=== PATIENT | male | born 1970 | race Hispanic/Latino ===

== ENCOUNTER 2024-01-03 16:55 | Emergency (ER) | payer BC ==
[~2024-01-03] VITALS: Ht 165.1 cm; Wt 77.1 kg
[2024-01-03 18:05] VITALS: TEMP 98.8
[2024-01-03 18:44] LABS: CLARITY,URINE SL CLOUDY (CLEAR); COLOR,URINE STRAW (YELLOW); PH,URINE 6.5 (5 - 7)
[2024-01-03 18:45] LABS: BILIRUBIN,URINE NEGATIVE (NEGATIVE); GLUCOSE, URINE NEGATIVE (NEGATIVE); KETONES,URINE NEGATIVE (NEGATIVE); LEUKOCYTE ESTERASE ,URINE MODERATE (NEGATIVE); NITRITE,URINE NEGATIVE (NEGATIVE); PROTEIN,URINE DIPSTICK TRACE (NEGATIVE); URINE UROBILINOGEN 0.2 mg/dL (0.2 - 1)
[2024-01-03 18:55] LABS: BACTERIA,URINE FEW /HPF; RBC,URINE 21-50 /HPF (0-5)
[2024-01-03] MEDS: LIDOCAINE JELLY 2% 10ML URO-JET TOP ONE (19:10)
[2024-01-03 19:12] VITALS: PULSE 89; RESP 15
[2024-01-03 19:45] VITALS: BP 157/97; PULSE 87; RESP 16; TEMP 98.5; O2SAT 96
== END 2024-01-03 19:40 | disposition home or self-care (01) ==
LOC: ER 18:05
DX: R33.9 Retention of urine, unspecified (principal); R10.30 Lower abdominal pain, unspecified; I10 Essential (primary) hypertension
CPT/HCPCS: 51700; 81001; 87086; 99283

== ENCOUNTER 2024-02-16 07:17 | Inpatient (IN) | payer BC ==
[2024-02-15 12:20] LABS: BASOPHILS % 0.6 % (0.0-1.0); EOSINOPHILS # (AUTO) 0.1 (0.0-0.4); EOSINOPHILS % 1.6 % (0.0-6.0); HEMATOCRIT 46.2 % (38.2-49.6); HEMOGLOBIN 15.7 g/dL (14.0-18.0); LYMPHOCYTES # (AUTO) 1.5 (1.0-3.2); LYMPHOCYTES % 22.2 % (18.0-39.1); MEAN CORPUSCULAR HEMOGLOBIN 31.9 pg (28-32); MEAN CORPUSCULAR VOLUME 93.9 fL (81-99); MONOCYTES # (AUTO) 0.7 (0.2-0.8); NEUTROPHILS # (AUTO) 4.4 (2.1-6.9); NEUTROPHILS % 65.2 % (38.7-80.0); PLATELET COUNT 223 x10e3/uL (140-360); RED BLOOD COUNT 4.92 x10e6/uL (4.3-5.7); RED CELL DISTRIBUTION WIDTH 12.3 % (11.7-14.4)
[2024-02-15 13:03] LABS: CREATININE, SERUM 0.79 mg/dL (0.72-1.25)
[2024-02-15 13:04] LABS: CALCIUM 9.9 mg/dL (8.4-10.2)
[~2024-02-16] VITALS: Ht 165.1 cm; Wt 75.3 kg
[~2024-02-16 07:17] MED LIST: FINASTERIDE5 MG PO; FLOMAX0.4 MG PO; LOSARTAN-HCTZ1 EAC1 PO
[2024-02-16] MEDS: GENTAMICIN 80MG/NS 100 ML 200 ML IV ONE (08:08)
[2024-02-16] MEDS: LEVOFLOXACIN 500MG/D5W 100ML 100 ML IV ONE (08:08)
[2024-02-16] MEDS: SODIUM CHLORIDE 0.9% 1000ML 1,000 ML ONE (08:09)
[2024-02-16] MEDS ORDERED: IOPAMIDOL 610MG/1ML 300 MG/ML VIAL IV ONE (10:35)
[2024-02-16] MEDS ORDERED: DEXAMETHASONE SOD PHOS INJ 4 MG/ML SDV ONE (12:23)
[2024-02-16] MEDS ORDERED: ONDANSETRON HCL INJ 2MG/ML 2ML 2 MG/ML VIAL ONE (12:23)
[2024-02-16] MEDS ORDERED: SEVOFLURANE INHAL SOLN 250 ML PEN BTL ONE (12:23)
[2024-02-16] MEDS ORDERED: PHENYLEPHRINE HCL 1% 10 MG/ML VIAL ONE (12:23)
[2024-02-16] MEDS ORDERED: LIDOCAINE HCL 2% LOCAL INJ 5 ML SDV VIAL INJ ONE (12:23)
[2024-02-16] MEDS ORDERED: PROPOFOL IV EMULSION 10 MG/ML 20 ML VIAL ONE (12:23)
[2024-02-16] MEDS ORDERED: GLYCOPYRROLATE INJ 0.2 MG/ML VIAL ONE (12:23)
[2024-02-16] MEDS ORDERED: DIPHENHYDRAMINE HCL INJ 50 MG/ML VIAL IM PRN (12:45)
[2024-02-16] MEDS ORDERED: ONDANSETRON HCL INJ 2MG/ML 2ML 2 MG/ML VIAL IV PRN (12:45)
[2024-02-16 13:01] LABS: BASOPHILS # (AUTO) 0.1 (0.0-0.1); BASOPHILS % 0.3 % (0.0-1.0); EOSINOPHILS % 0.2 % (0.0-6.0); HEMATOCRIT 44.1 % (38.2-49.6); HEMOGLOBIN 14.7 g/dL (14.0-18.0); LYMPHOCYTES % 5.6 % (18.0-39.1); MEAN CORPUSCULAR HEMOGLOBIN 31.8 pg (28-32); MEAN CORPUSCULAR HGB CONC 33.3 g/dL (31-35); MEAN CORPUSCULAR VOLUME 95.5 fL (81-99); MONOCYTES # (AUTO) 0.6 (0.2-0.8); MONOCYTES % 3.2 % (4.4-11.3); NEUTROPHILS # (AUTO) 16.2 (2.1-6.9); NEUTROPHILS % 90.2 % (38.7-80.0); PLATELET COUNT 208 x10e3/uL (140-360); RED BLOOD COUNT 4.62 x10e6/uL (4.3-5.7); RED CELL DISTRIBUTION WIDTH 12.4 % (11.7-14.4); WHITE BLOOD COUNT 17.95 x10e3/uL (4.8-10.8)
[2024-02-16 13:20] LABS: ANION GAP 12.9 mmol/L (8-16); CALCIUM 8.1 mg/dL (8.4-10.2); CREATININE, SERUM 0.82 mg/dL (0.72-1.25); POTASSIUM 3.9 mmol/L (3.5-5.1)
[2024-02-16] MEDS ORDERED: MIDAZOLAM HCL 2 MG/2 ML VIAL ONE (13:21)
[2024-02-16] MEDS ORDERED: FENTANYL CITRATE/PF 100MCG/2 ML INJ ONE (13:21)
[2024-02-16] MEDS: ACETAMINOPHEN 1000 MG/100 ML IV PRN (13:38)
[2024-02-16 14:03] VITALS: BP 115/74; PULSE 76; RESP 16; TEMP 98.6; O2SAT 98
[2024-02-16 14:46] VITALS: PULSE 75; RESP 22; O2SAT 98
[2024-02-16 16:25] VITALS: BP 130/79; PULSE 74; RESP 18; TEMP 97.9; O2SAT 95
[2024-02-16] MEDS: SODIUM CHLORIDE 0.9% 1000ML 1,000 ML IV SCH (17:38)
[2024-02-16 20:00] VITALS: BP 122/72; PULSE 71; RESP 17; TEMP 98; O2SAT 97
[2024-02-16 20:19] VITALS: PULSE 73; RESP 20; O2SAT 99
[2024-02-16 21:00] VITALS: BP 122/72; PULSE 73; RESP 20; TEMP 98; O2SAT 99
[2024-02-17] VITALS (10 sets, daily range): BP systolic 112–134; BP diastolic 65–80; PULSE 57–86; RESP 17–20; TEMP 97.9–99.1; O2SAT 96–100
[2024-02-17] MEDS: PHENAZOPYRIDINE HCL 100 MG TAB PO PRN (00:45)
[2024-02-17] MEDS: LACTATED RINGER'S 0 ML ONE (00:49)
[2024-02-17 06:18] LABS: BASOPHILS % 0.2 % (0.0-1.0); EOSINOPHILS % 0.2 % (0.0-6.0); HEMATOCRIT 40.5 % (38.2-49.6); HEMOGLOBIN 13.8 g/dL (14.0-18.0); LYMPHOCYTES # (AUTO) 1.9 (1.0-3.2); LYMPHOCYTES % 15.3 % (18.0-39.1); MEAN CORPUSCULAR HGB CONC 34.1 g/dL (31-35); MONOCYTES # (AUTO) 1.1 (0.2-0.8); MONOCYTES % 8.9 % (4.4-11.3); NEUTROPHILS # (AUTO) 9.5 (2.1-6.9); PLATELET COUNT 223 x10e3/uL (140-360); RED BLOOD COUNT 4.31 x10e6/uL (4.3-5.7); RED CELL DISTRIBUTION WIDTH 12.3 % (11.7-14.4); WHITE BLOOD COUNT 12.63 x10e3/uL (4.8-10.8)
[2024-02-17 06:33] LABS: ANION GAP 12.3 mmol/L (8-16); CALCIUM 8.4 mg/dL (8.4-10.2); CREATININE, SERUM 0.82 mg/dL (0.72-1.25)
[2024-02-17 06:39] LABS: POTASSIUM 3.3 mmol/L (3.5-5.1)
[2024-02-17] MEDS: LEVOFLOXACIN 500MG/D5W 100ML 100 ML IV SCH (09:22)
[2024-02-17] MEDS: ACETAMINOPHEN/CODEINE 300MG - 30MG TAB PO PRN (23:46)
[2024-02-18] VITALS (11 sets, daily range): BP systolic 125–162; BP diastolic 74–92; PULSE 61–85; RESP 16–20; TEMP 98.1–99.2; O2SAT 95–98
[2024-02-18 06:42] LABS: BASOPHILS # (AUTO) 0.1 (0.0-0.1); BASOPHILS % 0.7 % (0.0-1.0); EOSINOPHILS # (AUTO) 0.1 (0.0-0.4); EOSINOPHILS % 1.2 % (0.0-6.0); HEMATOCRIT 39.9 % (38.2-49.6); HEMOGLOBIN 13.7 g/dL (14.0-18.0); LYMPHOCYTES # (AUTO) 2.8 (1.0-3.2); LYMPHOCYTES % 29.7 % (18.0-39.1); MEAN CORPUSCULAR HEMOGLOBIN 32.2 pg (28-32); MEAN CORPUSCULAR HGB CONC 34.3 g/dL (31-35); MEAN CORPUSCULAR VOLUME 93.9 fL (81-99); MONOCYTES % 10.5 % (4.4-11.3); NEUTROPHILS # (AUTO) 5.4 (2.1-6.9); NEUTROPHILS % 57.5 % (38.7-80.0); PLATELET COUNT 200 x10e3/uL (140-360); RED BLOOD COUNT 4.25 x10e6/uL (4.3-5.7); RED CELL DISTRIBUTION WIDTH 12.7 % (11.7-14.4); WHITE BLOOD COUNT 9.39 x10e3/uL (4.8-10.8)
[2024-02-18 07:02] LABS: ANION GAP 10.2 mmol/L (8-16); CALCIUM 8.4 mg/dL (8.4-10.2); CREATININE, SERUM 0.75 mg/dL (0.72-1.25)
[2024-02-18 07:03] LABS: POTASSIUM 3.2 mmol/L (3.5-5.1)
[2024-02-19] VITALS (8 sets, daily range): BP systolic 117–140; BP diastolic 80–97; PULSE 72–91; RESP 16–22; TEMP 97.4–98.9; O2SAT 95–100
[2024-02-19 05:39] LABS: BASOPHILS # (AUTO) 0.1 (0.0-0.1); BASOPHILS % 0.7 % (0.0-1.0); EOSINOPHILS # (AUTO) 0.3 (0.0-0.4); EOSINOPHILS % 2.8 % (0.0-6.0); HEMATOCRIT 40.7 % (38.2-49.6); HEMOGLOBIN 13.7 g/dL (14.0-18.0); LYMPHOCYTES # (AUTO) 2.8 (1.0-3.2); LYMPHOCYTES % 28.9 % (18.0-39.1); MEAN CORPUSCULAR HEMOGLOBIN 31.6 pg (28-32); MEAN CORPUSCULAR HGB CONC 33.7 g/dL (31-35); MONOCYTES # (AUTO) 0.9 (0.2-0.8); MONOCYTES % 9.5 % (4.4-11.3); NEUTROPHILS # (AUTO) 5.5 (2.1-6.9); NEUTROPHILS % 57.7 % (38.7-80.0); PLATELET COUNT 217 x10e3/uL (140-360); RED BLOOD COUNT 4.33 x10e6/uL (4.3-5.7); RED CELL DISTRIBUTION WIDTH 12.6 % (11.7-14.4); WHITE BLOOD COUNT 9.61 x10e3/uL (4.8-10.8)
[2024-02-19 05:54] LABS: ANION GAP 13.3 mmol/L (8-16); CALCIUM 8.5 mg/dL (8.4-10.2); CREATININE, SERUM 0.79 mg/dL (0.72-1.25)
[2024-02-19 06:25] LABS: POTASSIUM 3.3 mmol/L (3.5-5.1)
[2024-02-20] VITALS (9 sets, daily range): BP systolic 127–157; BP diastolic 83–94; PULSE 67–98; RESP 16–22; TEMP 97.6–98.7; O2SAT 95–99
[2024-02-20 06:19] LABS: BASOPHILS # (AUTO) 0.1 (0.0-0.1); BASOPHILS % 0.7 % (0.0-1.0); EOSINOPHILS # (AUTO) 0.4 (0.0-0.4); EOSINOPHILS % 3.9 % (0.0-6.0); HEMATOCRIT 39.9 % (38.2-49.6); HEMOGLOBIN 13.6 g/dL (14.0-18.0); LYMPHOCYTES # (AUTO) 2.5 (1.0-3.2); LYMPHOCYTES % 27.7 % (18.0-39.1); MEAN CORPUSCULAR HEMOGLOBIN 31.9 pg (28-32); MEAN CORPUSCULAR HGB CONC 34.1 g/dL (31-35); MEAN CORPUSCULAR VOLUME 93.7 fL (81-99); MONOCYTES # (AUTO) 0.8 (0.2-0.8); NEUTROPHILS # (AUTO) 5.3 (2.1-6.9); NEUTROPHILS % 58.4 % (38.7-80.0); PLATELET COUNT 225 x10e3/uL (140-360); RED BLOOD COUNT 4.26 x10e6/uL (4.3-5.7); RED CELL DISTRIBUTION WIDTH 12.7 % (11.7-14.4); WHITE BLOOD COUNT 9.13 x10e3/uL (4.8-10.8)
[2024-02-20 06:34] LABS: ANION GAP 12.4 mmol/L (8-16); CALCIUM 8.8 mg/dL (8.4-10.2)
[2024-02-20 06:45] LABS: POTASSIUM 3.4 mmol/L (3.5-5.1)
[2024-02-20 07:04] LABS: CREATININE, SERUM 0.76 mg/dL (0.72-1.25)
[2024-02-21] VITALS (7 sets, daily range): BP systolic 117–166; BP diastolic 78–95; PULSE 66–94; RESP 16–20; TEMP 98.2–98.4; O2SAT 96–100
[2024-02-21] MEDS: SENNA-S TABLET PO SCH (17:48)
[2024-02-22] VITALS: BP 144/89; PULSE 88; RESP 17; TEMP 99.2; O2SAT 100
[2024-02-22 04:00] VITALS: BP 108/75; PULSE 84; RESP 17; TEMP 98.8; O2SAT 97
[2024-02-22 08:00] VITALS: BP 150/87; PULSE 71; RESP 17; TEMP 98.2; O2SAT 99
[2024-02-22 09:03] VITALS: BP 150/87; PULSE 71; RESP 17; TEMP 98.2; O2SAT 99
[2024-02-22 09:52] VITALS: PULSE 71; RESP 18; O2SAT 99
[2024-02-22] MEDS ORDERED: LEVOFLOXACIN250 MG PO (10:33)
== END 2024-02-22 11:36 | disposition home or self-care (01) | DRG 713 ==
LOC: OR 07:17 → PACU V 12:40 → MED/SURG3 13:31
PROVIDERS: ADMIT Internal Medicine; ATTEND Internal Medicine
PROC: BT161ZZ Fluoroscopy of Right Ureter using Low Osmolar Contrast (ICD-10-PCS; 2024-02-16)
PROC: BT171ZZ Fluoroscopy of Left Ureter using Low Osmolar Contrast (ICD-10-PCS; 2024-02-16)
PROC: 0VB08ZZ Excision of Prostate, Via Natural or Artificial Opening Endoscopic (ICD-10-PCS; principal; 2024-02-16 10:41)
PROC: BT101ZZ Fluoroscopy of Bladder using Low Osmolar Contrast (ICD-10-PCS; 2024-02-16 10:41)
DX: N40.1 Benign prostatic hyperplasia with lower urinary tract symptoms (principal); N13.8 Other obstructive and reflux uropathy; R31.0 Gross hematuria; I10 Essential (primary) hypertension; R33.8 Other retention of urine; R35.1 Nocturia; N32.81 Overactive bladder; E87.6 Hypokalemia; D64.89 Other specified anemias; Z79.82 Long term (current) use of aspirin; Z87.440 Personal history of urinary (tract) infections; Z96.0 Presence of urogenital implants; Z88.0 Allergy status to penicillin; Z88.8 Allergy status to other drugs, medicaments and biological substances
CPT/HCPCS: 36415; 74420; 80048; 83735; 85025; 87086; 88305; 93005; 94799; J1100; J1580; J1956; J2003; J2250; J2371; J2405; J7030